=== PATIENT | male | born 1990 | race Caucasian/White ===

== ENCOUNTER 2016-07-26 10:47 | Emergency (ER) | payer SELFPAY ==
[~2016-07-26] VITALS: Ht 185.4 cm; Wt 59.0 kg
[2016-07-26 11:13] VITALS: BP 111/65
[2016-07-26 11:47] LABS: Basophils # (auto) 0.1 uL; Basophils % (auto) 0.5 % (0.0-2.0); Eosinophils # (auto) 0.3 uL; Hematocrit 43.6 % (41.0-53.0); Hemoglobin 13.7 g/dL (13.5-17.5); Lymphocytes # (auto) 2.9 uL; Lymphocytes % (auto) 22.1 % (10.0-50.0); Mean Corpuscular Hemoglobin 28.4 pg (28.0-32.0); Mean Corpuscular Hgb Conc. 31.3 g/dL (32.0-36.0); Mean Corpuscular Volume 90.5 fL (80.0-100.0); Mean Platelet Volume 8.1 fL (7.4-10.4); Monocytes # (auto) 0.9 uL; Monocytes % (auto) 6.8 % (0.0-12.0); Neutrophils # (auto) 8.9 uL; Neutrophils % (auto) 68.6 % (37.0-80.0); Platelet Count (auto) 316 10^3/uL (140-450)
[2016-07-26 12:09] LABS: Albumin 3.4 g/dL (3.4-5.0); BUN/Creatinine Ratio 15.9; Bilirubin, Total 0.1 mg/dL (0.2-1.0); Calcium 9.3 mg/dL (8.5-10.1); Potassium 4.6 mmol/L (3.5-5.1); Total Protein 7.2 g/dL (6.4-8.2)
== END 2016-07-26 16:28 | disposition left against medical advice (07) ==
LOC: ER 10:54
DX: R20.0 Anesthesia of skin (principal); Z53.21 Procedure and treatment not carried out due to patient leaving prior to being seen by health care provider
CPT/HCPCS: 36415; 80053; 85025

== ENCOUNTER 2016-10-06 19:44 | Emergency (ER) | payer SELFPAY ==
[~2016-10-06] VITALS: Ht 188 cm; Wt 62.6 kg
[2016-10-06 20:05] VITALS: BP 122/78
== END 2016-10-07 03:36 | disposition left against medical advice (07) ==
LOC: ER 19:53
DX: M79.641 Pain in right hand (principal); R20.0 Anesthesia of skin; Z53.21 Procedure and treatment not carried out due to patient leaving prior to being seen by health care provider
CPT/HCPCS: 73130; 99281; G0434